=== PATIENT | male | born 1970 | race Caucasian/White ===

== ENCOUNTER 2020-10-17 12:31 | Emergency (ER) | payer BC ==
[2020-10-17 12:42] VITALS: BP 151/92; PULSE 85; TEMP 98.2; BMI 25.8
== END 2020-10-17 14:39 | disposition home or self-care (01) ==
LOC: JER 12:31
DX: R05 Cough (principal); Z11.52 Encounter for screening for COVID-19
CPT/HCPCS: 71046-TC-FY; 87804; 99283-25; C9803; U0003